=== PATIENT | female | born 1990 | race African-American/Black ===

== ENCOUNTER 2016-11-02 21:31 | Emergency (ER) | payer BC, OTHER ==
[~2016-11-02] VITALS: Ht 162.6 cm; Wt 70.0 kg
[~2016-11-02 21:31] MED LIST: IBUP800T23 PO; MENAINJ2 IM; METH750T2 PO; Z.0.BCPILL PO
[2016-11-02 21:33] VITALS: BP 118/67; PULSE 68; RESP 16; TEMP 97.6; O2SAT 100
== END 2016-11-02 23:10 | disposition left against medical advice (07) ==
LOC: NED 21:31
DX: R68.89 Other general symptoms and signs (principal)
CPT/HCPCS: 99281